=== PATIENT | female | born 1970 | race American Indian/Alaskan Native ===

== ENCOUNTER 2016-09-02 23:06 | Emergency (ER) | payer SELFPAY | END 2016-09-02 23:07 | disposition left against medical advice (07) | LOC: ED 23:06 | DX: M79.602 Pain in left arm (principal); M79.605 Pain in left leg; M54.9 Dorsalgia, unspecified; V89.0XXA Person injured in unspecified motor-vehicle accident, nontraffic, initial encounter; Y92.410 Unspecified street and highway as the place of occurrence of the external cause; Y93.9 Activity, unspecified; Y99.9 Unspecified external cause status; Z53.21 Procedure and treatment not carried out due to patient leaving prior to being seen by health care provider ==